=== PATIENT | male | born 1945 | race Caucasian/White ===

== ENCOUNTER 2017-03-12 11:23 | Observation (INO) | payer MEDICARE, OTHER ==
[~2017-03-12] VITALS: Ht 188 cm; Wt 81.6 kg
[2017-03-12] MEDS ORDERED: SODIUM CHLORIDE 0.9% 1000ML 1,000 ML IV STA (11:45)
[2017-03-12] MEDS ORDERED: ONDANSETRON HCL INJ 2 MG/ML VIAL IV STA (11:45)
[2017-03-12] MEDS ORDERED: CLONIDINE HCL 0.2 MG TAB PO STA (11:53)
[2017-03-12 12:13] LABS: BASOPHILS # (AUTO) 0.1 (0.0-0.1); BASOPHILS % 1.2 % (0.0-1.0); EOSINOPHILS # (AUTO) 0.1 (0.0-0.4); EOSINOPHILS % 1.1 % (0.0-6.0); HEMATOCRIT 50.1 % (38.2-49.6); HEMOGLOBIN 16.7 g/dL (14.0-18.0); LYMPHOCYTES # (AUTO) 1.4 (1.0-3.2); LYMPHOCYTES % 13.5 % (18.0-39.1); MEAN CORPUSCULAR HEMOGLOBIN 29.7 pg (28-32); MEAN CORPUSCULAR HGB CONC 33.3 g/dL (31-35); MONOCYTES # (AUTO) 0.7 (0.2-0.8); MONOCYTES % 6.5 % (4.4-11.3); NEUTROPHILS # (AUTO) 7.8 (2.1-6.9); NEUTROPHILS % 77.4 % (38.7-80.0); PLATELET COUNT 252 x10e3/uL (140-360); RED BLOOD COUNT 5.63 x10e6/uL (4.3-5.7); RED CELL DISTRIBUTION WIDTH 15.1 % (11.7-14.4)
[2017-03-12 12:30] LABS: ALANINE AMINOTRANSFERASE 9 IU/L (0-55); ALBUMIN 3.8 g/dL (3.5-5.0); ALKALINE PHOSPHATASE 80 IU/L (40-150); ANION GAP 14.8 mmol/L (8-16); BLOOD UREA NITROGEN 15 mg/dL (7-26); BUN/CREATININE RATIO 16 (6-25); CALCIUM 9.4 mg/dL (8.4-10.2); CARBON DIOXIDE 23 mmol/L (22-29); CHLORIDE 107 mmol/L (98-107); CREATINE KINASE 26 IU/L (30-200); CREATININE, SERUM 0.96 mg/dL (0.72-1.25); EST GLOMERULAR FILTRATION RATE > 60 ML/MIN (60-); GLUCOSE 103 mg/dL (74-118); LIPASE 23 U/L (8-78); POTASSIUM 3.8 mmol/L (3.5-5.1); SODIUM 141 mmol/L (136-145)
--- NOTE | 2017-03-12 12:33 | Diagnostic Imaging Report ---
PROCEDURE:CHEST SINGLE (PORTABLE) TECHNIQUE:Portable AP chest: 2 radiographs INDICATION:Hypertension COMPARISON:None. FINDINGS: Mild bilateral interstitial opacity without focal airspace disease. No pleural effusion. Normal heart size, mediastinal contour and pulmonary vasculature. Intact skeleton. CONCLUSION: Mild nonspecific bilateral interstitial opacity which may reflect etiology such as atypical or viral pneumonia, or early noncardiogenic pulmonary edema or underlying fibrosis. Dictated by: Tate Willis M.D. on 03/12/2017 at 12:42 Electronically approved by: Tate Willis M.D. on 03/12/2017 at 12:42
--- NOTE | 2017-03-12 14:00 | Diagnostic Imaging Report ---
Examination: CT BRAIN WITHOUT CONTRAST History:Nausea, vomiting, headache and blurry vision. Comparison studies:None Technique: Axial images were obtained from the skull base to the vertex. Coronal and sagittal images reconstructed from the axial data. Intravenous contrast: None Findings: Scalp: No abnormalities. Bones: Prior left pterional craniotomy and left temporal craniectomy. No fractures, blastic or lytic lesions. Brain sulci: Appropriate for age. Ventricles: Normal in size and configuration. No hydrocephalus. Extra-axial space: No acute abnormalities. There are at least 2 to 3 aneurysm clips seen in the medial left sylvian fissure. There is streak artifact associated with these clips. Parenchyma: There are confluent areas of hypoattenuation in the periventricular and subcortical white matter, nonspecific. No masses, hemorrhage, or acute cortical based vascular insults. There is chronic cortical based encephalomalacia of the left anterior temporal pole from prior vascular insult. Sellar/suprasellar region: No abnormalities. Craniocervical junction: Patent foramen magnum. No Chiari one malformation. Incidental findings: None. Impression: 1. No acute intracranial abnormalities within the visualized portions of the brain. 2. Moderate chronic microvascular ischemic change and chronic cortical based encephalomalacia of the left anterior temporal pole from prior vascular insult. 3. 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 Signed by: Dr. Shanda Alves M.D. on 03/12/2017 1:56 PM
--- NOTE | 2017-03-12 14:03 | Diagnostic Imaging Report ---
PROCEDURE:CT ABDOMEN AND PELVIS WITH CONTRAST COMPARISON:None. INDICATIONS:Abdominal pain TECHNIQUE: Routine protocol Volumetric CT abdomen and pelvis after administration of 100 mL Isovue-370 intravenous contrast and 900 mL dilute positive enteric contrast. Multiplanar reformatted images. DLP: 311.11 FINDINGS: Bibasilar interstitial thickening with lung cysts. No pleural effusions. Normal heart size. Liver: Normal Gallbladder: Normal Pancreas: Normal Spleen: Normal Adrenal glands: Normal Kidneys: 2.2 and 2.4 cm renal cysts on the right and left respectively. Otherwise, normal. Urinary bladder: Normal Prostate and seminal vesicles: Prostate diameter 4.6 cm. Bowel: Normal caliber. Normal appendix. Peritoneum: Normal Vasculature: Normal caliber. Mild calcified and noncalcified plaque of the infrarenal aorta. Lymph nodes: Normal Skeleton: Intact. Soft tissues: Small fat-containing right inguinal hernia. CONCLUSION: No conspicuous etiology for abdominal pain. Dictated by: Tate Willis M.D. on 03/12/2017 at 14:11 Electronically approved by: Tate Willis M.D. on 03/12/2017 at 14:11
[2017-03-12] MEDS ORDERED: SODIUM CHLORIDE FLUSH 10 ML SYR INJ PRN (15:00)
[2017-03-12] MEDS ORDERED: ONDANSETRON HCL INJ 2 MG/ML VIAL IV PRN (15:00)
[2017-03-12] MEDS ORDERED: IOPAMIDOL 370 MG/ML 200 ML INFUS..BTL INJ ONE (15:21)
[2017-03-12] MEDS ORDERED: SODIUM CHLORIDE 0.9% 50ML 50 ML ONE (15:21)
[2017-03-12 15:49] LABS: BILIRUBIN,URINE NEGATIVE (NEGATIVE); KETONES,URINE NEGATIVE (NEGATIVE); LEUKOCYTE ESTERASE ,URINE NEGATIVE (NEGATIVE); NITRITE,URINE NEGATIVE (NEGATIVE); PROTEIN,URINE DIPSTICK NEGATIVE (NEGATIVE); URINE UROBILINOGEN 0.2 mg/dL (0.2 - 1)
[2017-03-12 15:50] LABS: CLARITY,URINE CLEAR (CLEAR); COLOR,URINE STRAW (YELLOW)
[2017-03-12] MEDS: CLONIDINE HCL 0.2 MG TAB PO SCH (17:23)
[2017-03-12 17:35] VITALS: BP 213/113
[2017-03-12 18:41] VITALS: BP 140/78
[2017-03-12 20:00] VITALS: BP 126/67
[2017-03-12 21:42] LABS: CREATINE KINASE MB 0.7 ng/mL (0.00-5.00)
[2017-03-13 00:10] VITALS: BP 124/87
[2017-03-13 04:40] VITALS: BP 135/76
[2017-03-13 06:53] LABS: CREATINE KINASE MB 0.6 ng/mL (0.00-5.00)
[2017-03-13 08:00] VITALS: BP 184/86
[2017-03-13] MEDS: NIFEDIPINE CR 30 MG TAB PO SCH (08:42)
[2017-03-13] MEDS: CLONIDINE HCL 0.2 MG TAB PO SCH ×2 (08:42→16:49)
[2017-03-13 12:00] VITALS: BP 129/78
[2017-03-13 16:00] VITALS: BP 162/97
[2017-03-13] MEDS ORDERED: ALBUTEROL/IPRATROPIUM 3 ML NEB NEB PRN (18:30)
--- NOTE | 2017-03-13 18:51 | History and Physical ---
PRIMARY CARE PROVIDER: Dr. Tyler Ybarra. CHIEF COMPLAINT: Abdominal pain associated with hypertensive urgency. HISTORY OF PRESENT ILLNESS: Patient is a 71-year-old male who is a long-time smoker who came in with vague abdominal pain, nonspecific. His blood pressure was also elevated too as well with systolic 184 and diastolic 86. The patient was given nifedipine. He is doing a little bit better. He remained with some abdominal discomfort. The cardiac enzyme was negative. The patient also has a negative lipase. Imaging sin the patient had a CT scan of the brain showed no acute intracranial abnormality, but he does have moderate chronic microvascular ischemic changes. He has prior left periorbital craniotomy previously. The patient has also aneurysm clips noticed. There was no bleed. No active disease. The CT scan of the abdomen and pelvis with contrast showed no suspicious etiology for abdominal pain. Gallbladder is normal. Normal liver, pancreas and spleen. The patient has a kidney of 2.2 and 2.4 cm cyst on the right and left respectively without any significant complication. The patient is otherwise stable at this time. PAST MEDICAL HISTORY: He is a smoker and possible pulmonary emphysema due to smoking. SOCIAL HISTORY: The patient is a long-time smoker, a pack per day for many years. He denied alcohol use. No recreational drugs. ALLERGIES: NO KNOWN DRUG ALLERGIES. HOME MEDICATIONS: None. REVIEW OF SYSTEMS: Abdominal pain. PHYSICAL EXAMINATION: GENERAL: The patient is in no acute distress. VITAL SIGNS: Temperature is 97. Blood pressure 184/86. Pulse rate 51. Respirations 18. HEENT: Normocephalic, atraumatic, anicteric. NECK: Supple grossly. PULMONARY: Clear. CARDIOVASCULAR: Regular rhythm. ABDOMEN: Soft and nondistended, nontender on palpation. EXTREMITIES: No cyanosis or edema. NEUROLOGIC: No focal deficit. LABORATORY: Otherwise unremarkable. IMPRESSION: Abdominal pain, etiology unclear, could be vascular. PLAN: Obtain a CT of the chest without contrast. MRA of the abdomen with contrast to rule out for any ischemic changes. The patient is otherwise stable. Blood pressure control. The patient should be on observation at this time. Job#: [id number]
--- NOTE | 2017-03-13 21:54 | Diagnostic Imaging Report ---
EXAM: CT Chest WITHOUT contrast 03/13/2017 6:19 PM INDICATION: Chest pain, shortness of breath COMPARISON: None TECHNIQUE: Chest was scanned utilizing a multidetector helical scanner from the lung apex through the level of the adrenal glands without administration of IV contrast. Absence of intravenous contrast decreases sensitivity for detection of lymphadenopathy and vascular pathology. Coronal and sagittal reformations were obtained. Routine protocol was performed. IV CONTRAST: None RADIATION DOSE: Total DLP: 496.57 mGy*cm Estimated effective dose: (DLP x 0.014 x size factor) mSv COMPLICATIONS: None FINDINGS: LINES/ TUBES: None. LUNGS AND AIRWAYS: The lungs are remarkable for upper lobe predominant centrilobular and into a lesser extent paraseptal emphysema Airways are normal. PLEURA: The pleural spaces are clear. HEART AND MEDIASTINUM: The thyroid gland is normal. No mediastinal, hilar or axillary lymphadenopathy. The heart is normal in size.. There is no pericardial effusion. UPPER ABDOMEN: Limited non-contrast views of the upper abdomen show no abnormality within the visualized liver, spleen, pancreas, or kidneys. The adrenal glands are normal. BONES: There are degenerative changes in the thoracic spine. SOFT TISSUES: Unremarkable. IMPRESSION: 1. No acute intrathoracic abnormalities. 2. Moderate centrilobular and paraseptal emphysema Signed by: Dr. Darrel Price M.D. on 03/13/2017 9:51 PM
[2017-03-14 00:05] VITALS: BP 142/76
[2017-03-14 04:00] VITALS: BP 133/67
[2017-03-14 08:00] VITALS: BP 142/70
[2017-03-14] MEDS: NIFEDIPINE CR 30 MG TAB PO SCH (08:46)
[2017-03-14] MEDS ORDERED: DOCUSATE SODIUM LIQD 100 MG/10 ML UDC NG SCH (09:00)
[2017-03-14] MEDS ORDERED: NICOTINE 14 MG/EA PATCH TOP SCH (09:00)
[2017-03-14] MEDS ORDERED: GADOBENATE DIMEGLUMINE 1 ML IV ONE ×2 (09:41→09:42)
[2017-03-14] MEDS ORDERED: SODIUM CHLORIDE 0.9% 50ML 50 ML ONE (09:41)
--- NOTE | 2017-03-14 10:43 | Consultation ---
DATE OF CONSULTATION: March 13, 2017 CARDIOLOGY CONSULTATION REQUESTING PHYSICIAN: Dr. Moises Hale. REASON FOR CONSULTATION: Chest pain and abdominal pain. HISTORY OF PRESENT ILLNESS: This is a 71-year-old male that presented with abdominal pain. According to him, for the last 2 months he has been having nausea and vomiting and abdominal cramp that comes and goes. He also complained that the pain felt like stabbing pain and sometimes it radiated to the back, that he came in for evaluation. He also complained of episode of diarrhea and constipation off and on. His last bowel movement was 5 days ago. He has a history of brain aneurysm with clipping in the past and also a history of high blood pressure, but he is not taking any medication. He smokes a pack of cigarettes daily and not on any prescribed medication. He denies any chest pain, any palpitation, any dizziness or shortness of breath. Troponin was negative. EKG showed sinus bradycardia with non-ST abnormalities. Chest x-ray showed mild bilateral interstitial opacity. CT of the chest showed moderate paraseptal emphysema. PAST MEDICAL HISTORY: Brain aneurysm, hyperlipidemia and hypertension. PAST SURGICAL HISTORY: Craniotomy with aneurysm clipping. SOCIAL HISTORY: He smokes a pack of cigarettes daily and lives at home with the daughter. FAMILY HISTORY: Noncontributory. MEDICATIONS: He was not on any medication at home. ALLERGIES: HE IS NOT ALLERGIC TO ANY MEDICATION. REVIEW OF SYSTEMS: Negative except those mentioned above. PHYSICAL EXAMINATION VITAL SIGNS: Temperature 97, heart rate 51, blood pressure 133/67, respiration 16, oxygen saturation 98% on room air. GENERAL: He is awake, alert, and oriented x3. HEENT: Mucous membrane moist. NECK: Supple. LUNGS: Bilaterally clear to auscultation. CARDIOVASCULAR: S1/S2 present. ABDOMEN: Soft. Last bowel movement 5 days ago. NEUROLOGICAL: Intact. He is able to move all extremities. EXTREMITIES: Bilateral lower extremities with no edema. LABS: Sodium 141, potassium 3.8, chloride 107, CO2 23, BUN 15, creatinine 0.96, glucose 103. White blood cell 10.0, hemoglobin 16.7, hematocrit 50.1, platelet 252. IMPRESSION 1. Abdominal pain. 2. Questionable chest pain. 3. Hypertension. 4. Possible emphysema. 5. Tobacco abuse. 6. Possible constipation. 7. History of brain aneurysm. ASSESSMENT/PLAN: Will get an echo to assess the LV and the valve function. He has been counseled on tobacco cessation, and he wanted some nicotine patch. Possible stress test down the line. Will try to control his blood pressure. Further cardiac workup pending clinical course. Thank you for this consultation. Dictated by: Yudi Parish NP Job#: [id number] EV
[2017-03-14] MEDS ORDERED: ULTRAM 50MG50 MG PO (10:47)
[2017-03-14] MEDS ORDERED: NORVASC5 MG PO (10:47)
[2017-03-14] MEDS ORDERED: BENTYL10 MG PO (10:49)
--- NOTE | 2017-03-14 11:24 | Discharge Summary ---
Patient on observation. PRIMARY CARE PHYSICIAN: Dr. Tyler Ybarra. CONSULTANTS: Dr. Aaron Oleary. FINAL DIAGNOSES: 1. Abdominal pain, spasm. Could be secondary to irritable bowel syndrome. 2. Emphysema with smoking. 3. Hypertensive urgency. SUMMARY: A 71-year-old male came in with vague abdominal pain. The patient is a smoker. CT scan showed emphysema. Abdominal CT scan with contrast showed no significant abnormality. The patient refused MRA. Discussed with the patient at length. He will go home today with the following instructions: 1. Stop smoking. 2. Norvasc 10 mg daily. Phenergan 25 mg q.6 p.r.n. for nausea and vomiting. Tramadol 50 mg q.6 p.r.n. for pain. Bentyl 10 mg q.a.c. Aspirin 81 mg daily. The patient is suggested to go see his family doctor for a colonoscopy screening as an outpatient. He will follow up with Dr. Oleary for a stress test at a later date. The patient is otherwise stable. Discussed with the patient at length regarding stop smoking. Job#: [id number] EV
[2017-03-14] MEDS ORDERED: DOCUSATE SODIUM 100 MG CAP PO SCH (11:30)
== END 2017-03-14 12:06 | disposition home or self-care (01) ==
LOC: ER 11:23 → INTOOBSV 16:32 → ERHOLD 16:32 → MED/SURG2 16:37
PROVIDERS: ADMIT Internal Medicine; ATTEND Internal Medicine
DX: R10.84 Generalized abdominal pain (principal); K58.9 Irritable bowel syndrome, unspecified; I16.0 Hypertensive urgency; I10 Essential (primary) hypertension; J43.9 Emphysema, unspecified; E78.5 Hyperlipidemia, unspecified; I67.1 Cerebral aneurysm, nonruptured; F17.210 Nicotine dependence, cigarettes, uncomplicated; Z71.6 Tobacco abuse counseling
CPT/HCPCS: 36415 ×2; 70450; 71045; 71250; 74177; 80053; 81001; 82550 ×2; 82553 ×2; 82948; 83690; 84443; 84484 ×2; 85025; 87086; 93005; 99285; G0378 ×3; J2405; J7030; Q9967

== ENCOUNTER 2017-07-25 14:47 | Inpatient (IN) | payer OTHER ==
[~2017-07-25] VITALS: Ht 188 cm; Wt 78.5 kg
[~2017-07-25 14:47] MED LIST: BENTYL10 MG PO; NORVASC5 MG PO; ULTRAM 50MG50 MG PO
--- OUTSIDE RECORDS SUMMARY | 2017-07-25 14:49 | XMS REPORT ---
Author Author [facility] Address Unknown Phone Unavailable Care Team Providers Care Bunghole Borer Name Role Phone ALPESH NORRIS Unavailable Unavailable Problems This patient has no known problems. Allergies, Adverse Reactions, Alerts This patient has no known allergies or adverse reactions. Medications This patient has no known medications. Results Test Description Test Time Test Comments Text Results Atomic Results Result Comments CT CHEST WO [place] [address] Patient Name: STEVE RINALDI MR #: [id number] : 1945 Age/Sex: 71/M Req #: [id number] Adm Physician: ALPESH NORRIS MD Ordered by: ALPESH NORRIS MD Report # : [id number] Location: [facility]SURG Room/Bed: [facility] Procedure: [id number] CT/CT CHEST WO Exam Date: 03/13/17 Exam Time: 2029 REPORT STATUS: Signed EXAM: CT Chest WITHOUT contrast 03/13/2017 6:19 PM INDICATION: Chest pain, shortness of breath COMPARISON: None TECHNIQUE: Chest was scanned utilizing a multidetector helical scanner from the lung apex through the level of the adrenal glands without administration of IV contrast. Absence of intravenous contrast decreases sensitivity for detection of lymphadenopathy and vascular pathology. Coronal and sagittal reformations were obtained. Routine protocol was performed. IV CONTRAST: None RADIATION DOSE: Total DLP: 496.57 mGy*cm Estimated effective dose: (DLP x 0.014 x size factor) mSv COMPLICATIONS: None FINDINGS: LINES/ TUBES: None. LUNGS AND AIRWAYS: The lungs are remarkable for upper lobe predominant centrilobular and into a lesser extent paraseptal emphysema Airways are normal. PLEURA: The pleural spaces are clear. HEART AND MEDIASTINUM: The thyroid gland is normal. No mediastinal, hilar or axillary lymphadenopathy. The heart is normal in size.. There is no pericardial effusion. UPPER ABDOMEN: Limited non-contrast views of the upper abdomen show no abnormality within the visualized liver, spleen, pancreas, or kidneys. The adrenal glands are normal. BONES: There are degenerative changes in the thoracic spine. SOFT TISSUES: Unremarkable. IMPRESSION : 1. No acute intrathoracic abnormalities. 2. Moderate centrilobular and paraseptal emphysema Signed by: Dr. Darrel Price M.D. on 03/13/2017 9:51 PM Dictated By: DARREL KENNEDY MD 50 Transcribed By: KORY on 03/13/172150 COPY TO: ALPESH NORRIS MD CHEST SINGLE (PORTABLE) [place] [address] Patient Name: STEVE RINALDI MR #: [id number] : 1945 Age/Sex: 71/M Req #: [id number] Adm Physician: Ordered by: MACARENA GOSS MD Report #: [id number] Location: ER Room/Bed: Procedure: [id number] DX/CHEST SINGLE (PORTABLE) Exam Date: 03/12/17 Exam Time: 1200 REPORT STATUS: Signed PROCEDURE: CHEST SINGLE (PORTABLE) TECHNIQUE: Portable AP chest: 2 radiographs INDICATION: Hypertension COMPARISON: None. FINDINGS: Mild bilateral interstitial opacity without focal airspace disease. No pleural effusion. Normal heart size, mediastinal contour and pulmonary vasculature. Intact skeleton. CONCLUSION: Mild nonspecific bilateral interstitial opacity which may reflect etiology such as atypical or viral pneumonia, or early noncardiogenic pulmonary edema or underlying fibrosis. Dictated by: Armani Willis M.D. on 03/12/2017 at 12:42 Electronically approved by: Armani Willis M.D. on 03/12/2017 at 12: 42 Dictated By: ARMANI WILLIS MD 1242 Transcribed By: MAURILIO on 03/12/17 1242 COPY TO: MACARENA GOSS MD CT BRAIN WO [place] [address] Patient Name: STEVE RINALDI MR #: [id number] : 1945 Age/Sex: 71/M Req #: [id number] Adm Physician: Ordered by: MACARENA GOSS MD Report #: [id number] Location: ER Room/Bed: Procedure: [id number] CT/CT BRAIN WO Exam Date: 03/12/17 Exam Time: 1315 REPORT STATUS: Signed Examination: CT BRAIN WITHOUT CONTRAST History:Nausea, vomiting, headache and blurry vision. Comparison studies:None Technique: Axial images were obtained from the skull base to the vertex. Coronal and sagittal images reconstructed from the axial data. Intravenous contrast: None Findings: Scalp: No abnormalities. Bones : Prior left pterional craniotomy and left temporal craniectomy. No fractures , blastic or lytic lesions. Brain sulci: Appropriate for age. Ventricles : Normal in size and configuration. No hydrocephalus. Extra-axial space: No acute abnormalities. There are at least 2 to 3 aneurysm clips seen in the medial left sylvian fissure. There is streak artifact associated with these clips. Parenchyma: There are confluent areas of hypoattenuation in the periventricular and subcortical white matter, nonspecific. No masses, hemorrhage, or acute cortical based vascular insults. There is chronic cortical based encephalomalacia of the left anterior temporal pole from prior vascular insult. Sellar/suprasellar region: No abnormalities. Craniocervical junction: Patent foramen magnum. No Chiari one malformation. Incidental findings: None. Impression: 1. No acute intracranial abnormalities within the visualized portions of the brain. 2. Moderate chronic microvascular ischemic change and chronic cortical based encephalomalacia of the left anterior temporal pole from prior vascular insult. 3. 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 Signed by: Dr. Shanda Alves M.D. on 03/12/2017 1:56 PM Dictated By: SHANDA HOUSER MD 1356 Transcribed By: KORY on 03/12/17 1356 COPY TO: MACARENA GOSS MD CT ABDOMEN/PELVIS W [place] [address] Patient Name: STEVE RINALDI MR #: [id number] : 1945 Age/Sex: 71/M Req #: [id number] Adm Physician: Ordered by: MACARENA GOSS MD Report # : [id number] Location: ER Room/Bed: Procedure: [id number] CT/CT ABDOMEN/PELVIS W Exam Date: 03/12/17 Exam Time: 1315 REPORT STATUS: Signed PROCEDURE: CT ABDOMEN AND PELVIS WITH CONTRAST COMPARISON: None. INDICATIONS: Abdominal pain TECHNIQUE: Routine protocol Volumetric CT abdomen and pelvis after administration of 100 mL Isovue-370 intravenous contrast and 900 mL dilute positive enteric contrast. Multiplanar reformatted images. DLP: 311.11 FINDINGS: Bibasilar interstitial thickening with lung cysts. No pleural effusions. Normal heart size. Liver: Normal Gallbladder: Normal Pancreas: Normal Spleen: Normal Adrenal glands: Normal Kidneys: 2.2 and 2.4 cm renal cysts on the right and left respectively. Otherwise, normal. Urinary bladder: Normal Prostate and seminal vesicles: Prostate diameter 4.6 cm. Bowel: Normal caliber. Normal appendix. Peritoneum: Normal Vasculature: Normal caliber. Mild calcified and noncalcified plaque of the infrarenal aorta. Lymph nodes: Normal Skeleton: Intact. Soft tissues: Small fat-containing right inguinal hernia. CONCLUSION: No conspicuous etiology for abdominal pain. Dictated by : Armani Willis M.D. on 03/12/2017 at 14:11 Electronically approved by: Armani Willis M.D. on 03/12/2017 at 14:11 Dictated By: ARMANI WILLIS MD 1411 Transcribed By: MAURILIO on 03/12/17 1411 COPY TO: MACARENA GOSS MD
[2017-07-25] MEDS ORDERED: KETOROLAC TROMETHAMINE 30 MG/ML VIAL IV STA (15:25)
[2017-07-25] MEDS ORDERED: ONDANSETRON HCL INJ 2 MG/ML VIAL IV STA (15:25)
[2017-07-25] MEDS ORDERED: SODIUM CHLORIDE 0.9% 1000ML 1,000 ML IV SCH (15:30)
[2017-07-25 16:09] LABS: BASOPHILS % 0.5 % (0.0-1.0); EOSINOPHILS % 0.7 % (0.0-6.0); HEMATOCRIT 42.7 % (38.2-49.6); HEMOGLOBIN 15.1 g/dL (14.0-18.0); LYMPHOCYTES % 23.2 % (18.0-39.1); MEAN CORPUSCULAR HGB CONC 35.4 g/dL (31-35); MEAN CORPUSCULAR VOLUME 84.9 fL (81-99); MONOCYTES # (AUTO) 0.8 (0.2-0.8); MONOCYTES % 18.3 % (4.4-11.3); NEUTROPHILS # (AUTO) 2.4 (2.1-6.9); NEUTROPHILS % 56.8 % (38.7-80.0); PLATELET COUNT 232 x10e3/uL (140-360); RED BLOOD COUNT 5.03 x10e6/uL (4.3-5.7); RED CELL DISTRIBUTION WIDTH 14.2 % (11.7-14.4)
[2017-07-25 16:12] LABS: BILIRUBIN,URINE NEGATIVE (NEGATIVE); CLARITY,URINE SL CLOUDY (CLEAR); COLOR,URINE YELLOW (YELLOW); KETONES,URINE NEGATIVE (NEGATIVE); LEUKOCYTE ESTERASE ,URINE NEGATIVE (NEGATIVE); NITRITE,URINE NEGATIVE (NEGATIVE); PROTEIN,URINE DIPSTICK NEGATIVE (NEGATIVE); URINE UROBILINOGEN 0.2 mg/dL (0.2 - 1)
[2017-07-25 16:23] LABS: ALANINE AMINOTRANSFERASE 15 IU/L (0-55); ALBUMIN 3.2 g/dL (3.5-5.0); ALBUMIN/GLOBULIN RATIO 0.8 (0.8-2.0); ALKALINE PHOSPHATASE 92 IU/L (40-150); ANION GAP 14.8 mmol/L (8-16); BLOOD UREA NITROGEN 24 mg/dL (7-26); BUN/CREATININE RATIO 26 (6-25); CALCIUM 9.5 mg/dL (8.4-10.2); CARBON DIOXIDE 26 mmol/L (22-29); CHLORIDE 98 mmol/L (98-107); CREATINE KINASE 48 IU/L (30-200); CREATININE, SERUM 0.94 mg/dL (0.72-1.25); EST GLOMERULAR FILTRATION RATE > 60 ML/MIN (60-); GLUCOSE 124 mg/dL (74-118); SODIUM 136 mmol/L (136-145)
[2017-07-25 16:27] LABS: POTASSIUM 2.8 mmol/L (3.5-5.1)
[2017-07-25] MEDS ORDERED: POTASSIUM CHLORIDE 10MEQ/100ML 100 ML IV ONE (16:45)
[2017-07-25] MEDS ORDERED: POTASSIUM CHLORIDE 20 MEQ TAB CR PO STA (16:45)
[2017-07-25] MEDS ORDERED: POTASSIUM CHLORIDE 20MEQ/15ML UDC PO ONE (17:00)
--- NOTE | 2017-07-25 17:28 | Diagnostic Imaging Report ---
EXAMINATION: PA and lateral views of the chest. COMPARISON: Chest CT 03/13/2017 CLINICAL HISTORY: Dehydration, abnormal labs DISCUSSION: Lines/tubes: None. Lungs: Bilateral emphysematous changes, worse in the upper lungs. Ill-defined patchy opacity in the right lower lung. Rest of the lungs is grossly clear. Pleura: There is no pleural effusion or pneumothorax. Heart and mediastinum: Cardiomediastinal silhouette is unremarkable. Pulmonary vasculature is normal. Bones and soft tissues: No acute bony abnormalities. Degenerative changes in the thoracic spine IMPRESSION: 1. Findings in the right lower lobe likely represent developing pneumonia, in the appropriate clinical setting. Recommend chest PA and lateral 4-6 weeks after appropriate treatment to document resolution. 2. Bilateral emphysematous changes. Signed by: Dr. Jerry Stahl M.D. on 07/25/2017 5:24 PM
[2017-07-25] MEDS ORDERED: CEFTRIAXONE SOD 1 GM VIAL IV SCH (18:00)
[2017-07-25] MEDS ORDERED: AZITHROMYCIN 500MG/NS 250 ML 250 ML IV ONE (19:00)
[2017-07-25] MEDS: SODIUM CHLORIDE 0.9% 1000ML 1,000 ML IV SCH (19:19)
[2017-07-25 20:00] VITALS: BP 137/89
[2017-07-25 20:50] VITALS: BP 137/89
[2017-07-26] VITALS: BP 109/57
[2017-07-26 04:00] VITALS: BP 145/88
[2017-07-26] MEDS: ONDANSETRON HCL INJ 2 MG/ML VIAL IV PRN (05:47)
[2017-07-26 06:22] LABS: BASOPHILS % 0.9 % (0.0-1.0); EOSINOPHILS # (AUTO) 0.1 (0.0-0.4); HEMATOCRIT 38.8 % (38.2-49.6); HEMOGLOBIN 13.3 g/dL (14.0-18.0); LYMPHOCYTES # (AUTO) 1.4 (1.0-3.2); LYMPHOCYTES % 30.9 % (18.0-39.1); MEAN CORPUSCULAR HEMOGLOBIN 30.2 pg (28-32); MEAN CORPUSCULAR HGB CONC 34.3 g/dL (31-35); MONOCYTES # (AUTO) 0.8 (0.2-0.8); NEUTROPHILS # (AUTO) 2.1 (2.1-6.9); NEUTROPHILS % 47.7 % (38.7-80.0); PLATELET COUNT 210 x10e3/uL (140-360); RED BLOOD COUNT 4.41 x10e6/uL (4.3-5.7); RED CELL DISTRIBUTION WIDTH 14.5 % (11.7-14.4)
[2017-07-26 06:41] LABS: ANION GAP 12.2 mmol/L (8-16); BLOOD UREA NITROGEN 22 mg/dL (7-26); BUN/CREATININE RATIO 27 (6-25); CALCIUM 8.5 mg/dL (8.4-10.2); CARBON DIOXIDE 25 mmol/L (22-29); CHLORIDE 109 mmol/L (98-107); CREATININE, SERUM 0.83 mg/dL (0.72-1.25); EST GLOMERULAR FILTRATION RATE > 60 ML/MIN (60-); GLUCOSE 95 mg/dL (74-118); MAGNESIUM 1.6 MG/DL (1.3-2.1); POTASSIUM 3.2 mmol/L (3.5-5.1); SODIUM 143 mmol/L (136-145)
[2017-07-26] MEDS: SODIUM CHLORIDE 0.9% 1000ML 1,000 ML IV SCH (07:20)
[2017-07-26 08:11] VITALS: BP 130/77
[2017-07-26] MEDS ORDERED: AZITHROMYCIN 500MG/NS 250 ML 250 ML IV SCH (09:00)
[2017-07-26 11:13] LABS: EOSINOPHILS % (MANUAL) 2 % (0-7); LYMPHOCYTES % (MANUAL) 31 % (19-48); MONOCYTES % (MANUAL) 15 % (3.4-9.0); NEUTROPHILS % (MANUAL) 52 % (40-74)
[2017-07-26 11:14] LABS: PLATELET ESTIMATE ADEQUATE; PLATELET MORPHOLOGY COMMENT NORMAL; RBC MORPHOLOGY COMMENT NORMAL
[2017-07-26] MEDS: PREDNISONE 10 MG TAB PO SCH (12:00)
[2017-07-26] MEDS ORDERED: LEVOFLOXACIN 500 MG TAB PO ONE (12:00)
--- NOTE | 2017-07-26 13:56 | Diagnostic Imaging Report ---
EXAM: CT Chest WITHOUT contrast 07/26/2017 11:48 AM INDICATION: \S\POSSIBLE PNEUMONIA \[id number] \S\[id number] COMPARISON: Chest radiograph 07/25/[address] chest 03/13/2017 TECHNIQUE: Chest was scanned utilizing a multidetector helical scanner from the lung apex through the level of the adrenal glands without administration of IV contrast. Absence of intravenous contrast decreases sensitivity for detection of lymphadenopathy and vascular pathology. Coronal and sagittal reformations were obtained. Routine protocol was performed. IV CONTRAST: None COMPLICATIONS: None RADIATION DOSE: Total DLP: 524 mGy*cm Estimated effective dose: (DLP x 0.015 x size factor) mSv CTDIvol has been reviewed. It is below the limits set by the Radiation Protocol Committee (RPC). FINDINGS: LINES/ TUBES: None. LUNGS AND AIRWAYS: Right lower lobe consolidation with air bronchogram measuring 3 x 3.2 cm and abutting the fissure on series 3, image 67, which is new since 03/13/2017 but no significantly changed since 07/25/2017. There is also septal thickening of the surrounding lung parenchyma. Extensive centrilobular and paraseptal emphysema. Indeterminate 5 mm solid subpleural nodule in the right upper lobe on series 3, image 66. 4 mm solid pulmonary nodule in the left upper lobe on series 3, image 56. Band likely scarring in the left lower lobe is unchanged. Mild bilateral lower lobe predominant bronchiectasis. PLEURA: The pleural spaces are clear. HEART AND MEDIASTINUM: The thyroid gland is normal. Few small nonspecific mediastinal lymph nodes, measuring up to 0.8 cm in transverse diameter.. The heart is normal in size. There is no pericardial effusion. The thoracic aorta and pulmonary arteries are unremarkable. UPPER ABDOMEN: Partially included low-attenuation 2.3 cm right renal cyst. BONES: Mild multilevel degenerative changes of the thoracic spine. SOFT TISSUES: Unremarkable. IMPRESSION: Right lower lobe consolidation may represent pneumonia in the proper clinical setting. If no signs of infection, malignancy would be a concern in given the presence of severe centrilobular emphysema. Recommend follow-up chest radiograph in 4 weeks. If finding persists, then consider bronchoscopy for more final diagnosis. Signed by: Dr. Ana Molina M.D. on 07/26/2017 1:53 PM
[2017-07-26 16:00] VITALS: BP 172/88
[2017-07-26] MEDS: DICYCLOMINE HCL 10 MG CAP PO SCH (16:18)
--- NOTE | 2017-07-26 16:46 | History and Physical ---
The patient was placed in observation. PCP: Dr. Tyler Ybarra. CHIEF COMPLAINT: Nausea, vomiting and shortness of breath. HISTORY: Patient is a smoker. Has history of COPD. Came in with acute COPD exacerbation associated with also diarrhea, nausea and vomiting. Patient's potassium was low. The patient is otherwise stable at this time. He did receive potassium replacement. He has a chest x-ray with possible pneumonia. The patient is otherwise stable. No wheezing. No shortness of breath. PAST MEDICAL HISTORY: COPD, hypertension. PAST SURGICAL HISTORY: History of left periorbital craniotomy for aneurysm repair. SOCIAL HISTORY: Patient is a smoker. He does not use alcohol. No recreational drugs. HOME MEDICATIONS: List reviewed. ALLERGIES: NO KNOWN ALLERGIES. REVIEW OF SYSTEMS: As mentioned. PHYSICAL EXAMINATION VITAL SIGNS: Temperature is 98. Blood pressure 130/77. Pulse rate 74. Respirations 18. GENERAL: The patient is not in acute distress. HEENT: Normocephalic, atraumatic, anicteric. NECK: Supple grossly. PULMONARY: Diminished breath sounds without any wheezing. There are minimal coarses. CARDIOVASCULAR: S1 and S2. Regular rate and rhythm. ABDOMEN: Soft. Positive bowel sounds. Grossly nontender. No distention. EXTREMITIES: No gross cyanosis or edema. NEUROLOGIC: There is no gross focal deficit. LABORATORY: Sodium is 143, potassium 3.2, chloride 109, bicarb 25, BUN 22, creatinine 0.8. Glucose 95. WBC is 4.4, hemoglobin 13.3, hematocrit 38.8, platelets 210. IMPRESSION 1. Possible pneumonia. 2. Acute gastroenteritis. 3. Low potassium, replaced. PLAN: Observation. Levaquin antibiotic. Continue with home medications. CT of chest without contrast. The patient is otherwise stable without sepsis at this time. Job#: [id number]
[2017-07-26] MEDS: BUDESONIDE/FORMOTEROL 160/4.5MCG INHALER INH SCH (19:00)
[2017-07-26] MEDS: ALBUTEROL/IPRATROPIUM 3 ML NEB NEB SCH (20:00)
[2017-07-26 20:06] VITALS: BP 137/77
[2017-07-27] VITALS (8 sets, daily range): BP systolic 138–168; BP diastolic 72–82
[2017-07-27] MEDS: ALBUTEROL/IPRATROPIUM 3 ML NEB NEB SCH ×4 (00:45→20:00)
[2017-07-27] MEDS: LEVOFLOXACIN 500 MG TAB PO SCH (06:13)
[2017-07-27 06:14] LABS: BASOPHILS % 0.4 % (0.0-1.0); EOSINOPHILS % 0.8 % (0.0-6.0); HEMATOCRIT 39.8 % (38.2-49.6); HEMOGLOBIN 13.7 g/dL (14.0-18.0); LYMPHOCYTES # (AUTO) 1.6 (1.0-3.2); LYMPHOCYTES % 30.8 % (18.0-39.1); MEAN CORPUSCULAR HEMOGLOBIN 30.1 pg (28-32); MEAN CORPUSCULAR HGB CONC 34.4 g/dL (31-35); MEAN CORPUSCULAR VOLUME 87.5 fL (81-99); MONOCYTES # (AUTO) 0.8 (0.2-0.8); MONOCYTES % 14.8 % (4.4-11.3); NEUTROPHILS # (AUTO) 2.7 (2.1-6.9); NEUTROPHILS % 52.8 % (38.7-80.0); PLATELET COUNT 213 x10e3/uL (140-360); RED BLOOD COUNT 4.55 x10e6/uL (4.3-5.7); RED CELL DISTRIBUTION WIDTH 14.5 % (11.7-14.4)
[2017-07-27 06:34] LABS: ANION GAP 12.5 mmol/L (8-16); BLOOD UREA NITROGEN 16 mg/dL (7-26); BUN/CREATININE RATIO 19 (6-25); CALCIUM 8.7 mg/dL (8.4-10.2); CARBON DIOXIDE 25 mmol/L (22-29); CHLORIDE 108 mmol/L (98-107); CREATININE, SERUM 0.84 mg/dL (0.72-1.25); EST GLOMERULAR FILTRATION RATE > 60 ML/MIN (60-); GLUCOSE 91 mg/dL (74-118); POTASSIUM 3.5 mmol/L (3.5-5.1); SODIUM 142 mmol/L (136-145)
[2017-07-27] MEDS: BUDESONIDE/FORMOTEROL 160/4.5MCG INHALER INH SCH ×2 (07:00→20:00)
[2017-07-27 08:01] LABS: BAND NEUTROPHILS % (MANUAL) 5 %; EOSINOPHILS % (MANUAL) 2 % (0-7); HYPOCHROMASIA SLIGHT; LYMPHOCYTES % (MANUAL) 27 % (19-48); MONOCYTES % (MANUAL) 8 % (3.4-9.0); NEUTROPHILS % (MANUAL) 55 % (40-74); NUCLEATED RED BLOOD CELLS 1; PLATELET ESTIMATE ADEQUATE; PLATELET MORPHOLOGY COMMENT FEW GIANT; RBC MORPHOLOGY COMMENT NORMAL; SMUDGE CELLS FEW
[2017-07-27 08:02] LABS: ANISOCYTOSIS SLIGHT
[2017-07-27] MEDS: DICYCLOMINE HCL 10 MG CAP PO SCH ×3 (08:27→16:32)
[2017-07-27] MEDS: PREDNISONE 10 MG TAB PO SCH (08:27)
[2017-07-27] MEDS: AMLODIPINE BESYLATE 5 MG TAB PO SCH (08:27)
[2017-07-27] MEDS: ONDANSETRON HCL INJ 2 MG/ML VIAL IV PRN (10:31)
--- NOTE | 2017-07-27 20:17 | Discharge Summary ---
PRIMARY CARE PHYSICIAN: Dr. Tyler Ybarra The patient on observation. FINAL DIAGNOSES: 1. Right lower lobe pneumonia. 2. Acute exacerbation of chronic obstructive pulmonary disease. SUMMARY: A 72-year-old male, smoker, who came in with acute exacerbation of COPD with pneumonia with increase in shortness of breath. The patient also has acute gastroenteritis. His diarrhea has now resolved. The patient's CT scan showed right lower lobe consolidation. The patient will need to follow up with x-ray in approximately 4 weeks for demonstrating resolution. Patient is stable. He is comfortable today. He is doing much better. No wheezing. No hypoxia at this time. He will go home with Levaquin 500 mg daily for 7 days. ProAir HFA 2 puffs q.4 hours p.r.n., Livia-Tussin AC 5 mL q.4 hour p.r.n., prednisone 10 mg daily for 7 days. Symbicort 160/4.5 mcg 2 puffs b.i.d. nebulizer and DuoNeb q.6 hour as needed for shortness of breath. The patient is stable. Follow up with Dr. Tyler Ybarra, patient's PCP, within a week. Need repeated imaging in approximately 4 weeks. Job#: [id number]
[2017-07-27] MEDS: TRAMADOL HCL 50 MG TAB PO PRN (21:04)
[2017-07-28] VITALS: BP 154/89
[2017-07-28 04:00] VITALS: BP 175/92
[2017-07-28] MEDS: ONDANSETRON HCL INJ 2 MG/ML VIAL IV PRN (04:42)
[2017-07-28] MEDS: TRAMADOL HCL 50 MG TAB PO PRN (05:56)
[2017-07-28] MEDS: LEVOFLOXACIN 500 MG TAB PO SCH (05:56)
[2017-07-28] MEDS: ALBUTEROL/IPRATROPIUM 3 ML NEB NEB SCH ×2 (06:42)
[2017-07-28] MEDS: BUDESONIDE/FORMOTEROL 160/4.5MCG INHALER INH SCH (06:43)
[2017-07-28] MEDS ORDERED: LEVAQUIN500 MG PO (07:50)
[2017-07-28] MEDS: DICYCLOMINE HCL 10 MG CAP PO SCH (08:12)
[2017-07-28] MEDS: AMLODIPINE BESYLATE 5 MG TAB PO SCH (08:12)
[2017-07-28] MEDS: PREDNISONE 10 MG TAB PO SCH (08:12)
[2017-07-28 08:30] VITALS: BP 189/91
[2017-07-28 09:22] VITALS: BP 189/91
== END 2017-07-28 09:37 | disposition home or self-care (01) | DRG 190 ==
LOC: ER 14:47 → ERHOLD 18:02 → MED/SURG2 19:48
PROVIDERS: ADMIT Internal Medicine; ATTEND Internal Medicine
DX: J44.0 Chronic obstructive pulmonary disease with (acute) lower respiratory infection (principal); J18.9 Pneumonia, unspecified organism; J44.1 Chronic obstructive pulmonary disease with (acute) exacerbation; K52.9 Noninfective gastroenteritis and colitis, unspecified; E87.6 Hypokalemia; E86.0 Dehydration; F17.210 Nicotine dependence, cigarettes, uncomplicated; I10 Essential (primary) hypertension
CPT/HCPCS: 36415; 71045; 71250; 80048; 80053; 81001; 82550; 82553; 82948; 83735; 84484; 85025; 87040; 87071; 87186; 87205; 93005; 94640; 96374; 96376; 99284; J0456; J0696; J1885; J2405; J3480; J7030